=== PATIENT | female | born 2000 | race Two or more races ===

== ENCOUNTER 2021-12-10 20:00 | Inpatient (IN) | payer MEDICAID, OTHER ==
[~2021-12-10] VITALS: Ht 147.3 cm; Wt 77.5 kg
[2021-12-10] MEDS ORDERED: ONDANSETRON HCL 4 MG/2 ML VIAL IV ONE (20:30)
[2021-12-10] MEDS ORDERED: FLEET ENEMA(ADULT) 135 ML PR ONE (23:00)
[2021-12-10] MEDS ORDERED: MAGNESIUM CITRATE SOLUTION 300 ML BTL PO ONE (23:00)
[2021-12-10] MEDS ORDERED: AZITHROMYCIN 500MG/ 250ML 250 ML IV ONE (23:15)
[2021-12-10] MEDS ORDERED: cefTRIAXone 1GM/50ML D5W 50 ML IV ONE (23:15)
[2021-12-10 23:34] LABS: Albumin 3.8 g/dL (3.4-5.0); Calcium 9.5 mg/dL (8.5-10.1); Potassium 3.5 mmol/L (3.5-5.1)
[2021-12-10 23:35] LABS: Basophils # (auto) 0 10 ^3/uL (0-0.2); Basophils % (auto) 0.5 % (0.0-2.0); Eosinophils # (auto) 0 10 ^3/uL (0-0.8); Eosinophils % (auto) 0.2 % (0.0-7.0); Hematocrit 43.1 % (36.0-46.0); Lymphocytes % (auto) 15.8 % (10.0-50.0); Mean Corpuscular Hemoglobin 31.9 pg (28.0-32.0); Mean Corpuscular Hgb Conc. 34.8 g/dL (32.0-36.0); Mean Corpuscular Volume 91.7 fL (80.0-100.0); Monocytes # (auto) 0.8 10 ^3/uL (0-1.3); Monocytes % (auto) 13.6 % (0.0-12.0); Neutrophils # (auto) 4.3 10 ^3/uL (1.6-8.6); Neutrophils % (auto) 69.9 % (37.0-80.0); Nucleated Red Blood Cells % 0.1 %; Red Cell Distribution Width 12.8 % (11.8-14.3); White Blood Cell 6.1 10^3/uL (4.4-10.8)
[2021-12-10 23:36] LABS: BUN/Creatinine Ratio 17.2
[2021-12-10 23:39] LABS: Bilirubin, Total 0.3 mg/dL (0.2-1.0)
[2021-12-11] MEDS ORDERED: ONDANSETRON HCL 4 MG/2 ML VIAL IV PRN (02:15)
[2021-12-11] MEDS ORDERED: NITROGLYCERIN 0.4 MG SL TAB SL PRN (03:00)
[2021-12-11] MEDS ORDERED: MORPHINE SULFATE INJ 2 MG/ml SYRG IV PRN (03:00)
[2021-12-11] MEDS: ACETAMINOPHEN 650 mg PER 20.3 mL UD GT PRN ×2 (04:43→21:07)
[2021-12-11 09:00] VITALS: BP 90/61
[2021-12-11] MEDS ORDERED: levETIRAcetam 500 MG/5ML ORAL SOLN UD GT SCH (10:00)
[2021-12-11] MEDS ORDERED: CLOB2.5S GT (10:14)
[2021-12-11] MEDS ORDERED: OXCA600T3 GT (10:14)
[2021-12-11] MEDS ORDERED: LEVE250T18 GT (10:14)
[2021-12-11] MEDS ORDERED: LAMO100T44 GT (10:14)
[2021-12-11] MEDS: SODIUM CHLOR 0.9% PF (SALINE LOCK) 10ML VIAL/SYR IV SCH ×3 (10:16→21:01)
[2021-12-11] MEDS: AZITHROMYCIN 500MG/ 250ML 250 ML IV SCH (11:05)
[2021-12-11] MEDS: FAMOTIDINE (10MG/ML) 2ML VL IV SCH (11:05)
[2021-12-11] MEDS: ENOXAPARIN SOD 40 MG/0.4 ML SYRINGE SC SCH (11:10)
[2021-12-11] MEDS: DOCUSATE ORAL LIQUID 100 MG/10 ML UD GT SCH ×2 (12:56→21:00)
[2021-12-11 13:00] VITALS: BP 104/73
[2021-12-11] MEDS: OXCARBAZEPINE 300 MG/5 ML GT SCH ×2 (14:00→20:47)
[2021-12-11] MEDS: CLINDAMYCIN 300MG IV 50 ML IV SCH ×2 (15:14→21:11)
[2021-12-11 17:05] VITALS: BP 111/77
[2021-12-11] MEDS ORDERED: Nutren 1.0/Fiber 8 ounces GT SCH (18:00)
[2021-12-11] MEDS: Jevity 1.2 Cal/Fiber 1 Liter GT SCH (20:00)
[2021-12-11] MEDS: levETIRAcetam 500 MG/5ML ORAL SOLN UD GT SCH (20:56)
[2021-12-11] MEDS: lamoTRIgine 25 MG TAB GT SCH (20:58)
[2021-12-11 22:00] VITALS: BP 112/69
[2021-12-11] MEDS: CLOBAZAM 2.5 MG/ML GT SCH (22:50)
[2021-12-12] MEDS: Jevity 1.2 Cal/Fiber 1 Liter GT SCH (00:17)
[2021-12-12] MEDS ORDERED: Jevity 1.2 Cal/Fiber 1 Liter GT SCH (01:30)
[2021-12-12] MEDS ORDERED: Nepro With Carb Steady 1 Liter Bottle GT SCH ×2 (02:45→04:15)
[2021-12-12] MEDS ORDERED: Nepro With Carb Steady 1 Liter Bottle GT ONE (04:45)
[2021-12-12 05:00] VITALS: BP 101/69
[2021-12-12] MEDS: CLINDAMYCIN 300MG IV 50 ML IV SCH ×3 (05:48→21:57)
[2021-12-12] MEDS: lamoTRIgine 25 MG TAB GT SCH ×3 (05:48→21:57)
[2021-12-12] MEDS: OXCARBAZEPINE 300 MG/5 ML GT SCH ×3 (05:48→21:54)
[2021-12-12] MEDS: SODIUM CHLOR 0.9% PF (SALINE LOCK) 10ML VIAL/SYR IV SCH ×3 (05:49→21:58)
[2021-12-12 08:43] LABS: Hematocrit 40.7 % (36.0-46.0); Hemoglobin 14.3 g/dL (12.2-16.2); Mean Corpuscular Hemoglobin 32.1 pg (28.0-32.0); Mean Corpuscular Hgb Conc. 35.2 g/dL (32.0-36.0); Mean Corpuscular Volume 91.1 fL (80.0-100.0); Red Blood Cells 4.47 10^6/uL (4.0-5.20); Red Cell Distribution Width 12.2 % (11.8-14.3); White Blood Cell 6.3 10^3/uL (4.4-10.8)
[2021-12-12 08:55] LABS: Basophils % (manual) 0 (0.0-2.0); Blast Cells 0; Eosinophils % (manual) 0 (0-7); Metamyelocytes % 0; Myelocytes % 0; Promyelocytes % 0; Reactive Lymphocytes 0
[2021-12-12 09:00] VITALS: BP 107/74
[2021-12-12 09:03] LABS: Albumin 3.2 g/dL (3.4-5.0); Potassium 3.5 mmol/L (3.5-5.1)
[2021-12-12 09:06] LABS: BUN/Creatinine Ratio 14.7; Bilirubin, Total 0.2 mg/dL (0.2-1.0); Total Protein 7.6 g/dL (6.4-8.2)
[2021-12-12] MEDS: DOCUSATE ORAL LIQUID 100 MG/10 ML UD GT SCH ×3 (10:00→21:55)
[2021-12-12] MEDS: AZITHROMYCIN 500MG/ 250ML 250 ML IV SCH (10:09)
[2021-12-12] MEDS: FAMOTIDINE (10MG/ML) 2ML VL IV SCH (10:09)
[2021-12-12] MEDS: levETIRAcetam 500 MG/5ML ORAL SOLN UD GT SCH ×2 (10:10→21:56)
[2021-12-12] MEDS: ENOXAPARIN SOD 40 MG/0.4 ML SYRINGE SC SCH (10:11)
[2021-12-12 13:00] VITALS: BP 117/74
[2021-12-12] MEDS ORDERED: ALBUTEROL SULF 2.5 MG/0.5ML(0.5%) NEB SOLN NEB ONE (13:45)
[2021-12-12] MEDS ORDERED: IPRATROPIUM BROM 0.5 MG/2.5ML INH SOL NEB ONE (13:45)
[2021-12-12 15:01] VITALS: BP 117/74
[2021-12-12 15:16] LABS: Band Neutrophils % (manual) 9; Lymphocytes % (manual) 40 (10.0-50.0); Monocytes % (manual) 19 (0-12)
[2021-12-12 16:19] LABS: Urine Bacteria NONE SEEN /hpf (None Seen); Urine Blood Negative /uL (Negative); Urine Mucus FEW (None Seen); Urine Specific Gravity 1.037 (1.001-1.035); Urine WBC 2 /hpf (0 - 5)
[2021-12-12 17:00] VITALS: BP 111/67
[2021-12-12] MEDS: IPRATROPIUM BROM 0.5 MG/2.5ML INH SOL NEB SCH (17:45)
[2021-12-12] MEDS: ALBUTEROL SULF 2.5 MG/0.5ML(0.5%) NEB SOLN NEB SCH (17:45)
[2021-12-12] MEDS: CLOBAZAM 2.5 MG/ML GT SCH (21:54)
[2021-12-12 22:00] VITALS: BP 113/65
[2021-12-13] MEDS: IPRATROPIUM BROM 0.5 MG/2.5ML INH SOL NEB SCH ×4 (00:24→19:04)
[2021-12-13] MEDS: ALBUTEROL SULF 2.5 MG/0.5ML(0.5%) NEB SOLN NEB SCH ×4 (00:24→19:03)
[2021-12-13 05:00] VITALS: BP 104/68
[2021-12-13] MEDS: OXCARBAZEPINE 300 MG/5 ML GT SCH ×3 (05:45→21:35)
[2021-12-13] MEDS: lamoTRIgine 25 MG TAB GT SCH ×3 (05:46→21:36)
[2021-12-13] MEDS: CLINDAMYCIN 300MG IV 50 ML IV SCH ×3 (05:46→21:36)
[2021-12-13] MEDS: SODIUM CHLOR 0.9% PF (SALINE LOCK) 10ML VIAL/SYR IV SCH ×3 (06:02→21:36)
[2021-12-13 07:05] LABS: Basophils # (auto) 0 10 ^3/uL (0-0.2); Basophils % (auto) 0.4 % (0.0-2.0); Eosinophils # (auto) 0.1 10 ^3/uL (0-0.8); Eosinophils % (auto) 2.9 % (0.0-7.0); Hematocrit 37.4 % (36.0-46.0); Hemoglobin 13.2 g/dL (12.2-16.2); Mean Corpuscular Hemoglobin 31.7 pg (28.0-32.0); Mean Corpuscular Hgb Conc. 35.2 g/dL (32.0-36.0); Mean Corpuscular Volume 90.1 fL (80.0-100.0); Neutrophils % (auto) 37.6 % (37.0-80.0); Nucleated Red Blood Cells % 0.1 %; Red Blood Cells 4.15 10^6/uL (4.0-5.20); Red Cell Distribution Width 12.3 % (11.8-14.3); White Blood Cell 5.2 10^3/uL (4.4-10.8)
[2021-12-13 07:19] LABS: Monocytes % (auto) 20.1 % (0.0-12.0)
[2021-12-13 07:31] LABS: Albumin 3.2 g/dL (3.4-5.0); Calcium 8.8 mg/dL (8.5-10.1); Potassium 3.8 mmol/L (3.5-5.1)
[2021-12-13 07:35] LABS: BUN/Creatinine Ratio 13.3; Bilirubin, Total 0.2 mg/dL (0.2-1.0); Total Protein 7.3 g/dL (6.4-8.2)
[2021-12-13 09:00] VITALS: BP 134/20
[2021-12-13] MEDS: DOCUSATE ORAL LIQUID 100 MG/10 ML UD GT SCH ×2 (12:29→21:35)
[2021-12-13] MEDS: levETIRAcetam 500 MG/5ML ORAL SOLN UD GT SCH ×2 (12:29→21:36)
[2021-12-13] MEDS: FAMOTIDINE (10MG/ML) 2ML VL IV SCH (12:30)
[2021-12-13] MEDS: AZITHROMYCIN 500MG/ 250ML 250 ML IV SCH (12:31)
[2021-12-13] MEDS: SODIUM CHLORIDE 0.9% 1,000 ML IV SCH ×2 (12:32→17:40)
[2021-12-13 13:00] VITALS: BP 114/66
[2021-12-13 17:00] VITALS: BP 126/76
[2021-12-13] MEDS: CLOBAZAM 2.5 MG/ML GT SCH (21:35)
[2021-12-13 22:00] VITALS: BP 113/61
[2021-12-14] MEDS: SODIUM CHLORIDE 0.9% 1,000 ML IV SCH ×2 (00:20→07:00)
[2021-12-14] MEDS: IPRATROPIUM BROM 0.5 MG/2.5ML INH SOL NEB SCH ×3 (00:26→11:29)
[2021-12-14] MEDS: ALBUTEROL SULF 2.5 MG/0.5ML(0.5%) NEB SOLN NEB SCH ×3 (00:26→11:29)
[2021-12-14 05:00] VITALS: BP 113/60
[2021-12-14] MEDS: OXCARBAZEPINE 300 MG/5 ML GT SCH (05:45)
[2021-12-14] MEDS: lamoTRIgine 25 MG TAB GT SCH (05:46)
[2021-12-14] MEDS: SODIUM CHLOR 0.9% PF (SALINE LOCK) 10ML VIAL/SYR IV SCH (05:46)
[2021-12-14] MEDS: CLINDAMYCIN 300MG IV 50 ML IV SCH (05:46)
[2021-12-14 07:30] LABS: Basophils # (auto) 0 10 ^3/uL (0-0.2); Basophils % (auto) 0.3 % (0.0-2.0); Eosinophils # (auto) 0.3 10 ^3/uL (0-0.8); Eosinophils % (auto) 3.9 % (0.0-7.0); Hematocrit 35.8 % (36.0-46.0); Hemoglobin 12.9 g/dL (12.2-16.2); Lymphocytes % (auto) 31.5 % (10.0-50.0); Mean Corpuscular Hemoglobin 32.6 pg (28.0-32.0); Mean Corpuscular Hgb Conc. 36.1 g/dL (32.0-36.0); Mean Corpuscular Volume 90.2 fL (80.0-100.0); Monocytes # (auto) 0.7 10 ^3/uL (0-1.3); Monocytes % (auto) 11.1 % (0.0-12.0); Neutrophils # (auto) 3.4 10 ^3/uL (1.6-8.6); Neutrophils % (auto) 53.2 % (37.0-80.0); Nucleated Red Blood Cells % 0.2 %; Red Blood Cells 3.97 10^6/uL (4.0-5.20); Red Cell Distribution Width 12.4 % (11.8-14.3); White Blood Cell 6.4 10^3/uL (4.4-10.8)
[2021-12-14 07:50] LABS: BUN/Creatinine Ratio 11.4; Calcium 8.5 mg/dL (8.5-10.1); Potassium 3.7 mmol/L (3.5-5.1)
[2021-12-14 07:53] LABS: Bilirubin, Total 0.2 mg/dL (0.2-1.0); Total Protein 6.5 g/dL (6.4-8.2)
[2021-12-14 09:00] VITALS: BP 127/74
[2021-12-14] MEDS: DOCUSATE ORAL LIQUID 100 MG/10 ML UD GT SCH (10:47)
[2021-12-14] MEDS: levETIRAcetam 500 MG/5ML ORAL SOLN UD GT SCH (10:48)
[2021-12-14] MEDS: FAMOTIDINE (10MG/ML) 2ML VL IV SCH (10:48)
[2021-12-14] MEDS: AZITHROMYCIN 500MG/ 250ML 250 ML IV SCH (10:48)
[2021-12-14] MEDS ORDERED: ALBU0.084 NEB (12:25)
[2021-12-14] MEDS ORDERED: LEVO500T31 PO (12:25)
[2021-12-14 12:38] VITALS: BP 125/63
[2021-12-14 14:25] VITALS: BP 127/74
== END 2021-12-14 15:00 | disposition home or self-care (01) | DRG 137 ==
LOC: ER 20:00 → TELE 12-11 02:58 → TELE-WESTW 12-11 08:26 → WEST WING 12-13 03:02
PROVIDERS: ADMIT Nurse Practitioner Family; ATTEND Family Medicine
DX: J69.0 Pneumonitis due to inhalation of food and vomit (principal); J96.01 Acute respiratory failure with hypoxia; R34 Anuria and oliguria; Z20.822 Contact with and (suspected) exposure to COVID-19; G40.909 Epilepsy, unspecified, not intractable, without status epilepticus; K59.00 Constipation, unspecified; J40 Bronchitis, not specified as acute or chronic; Z74.01 Bed confinement status; Z87.820 Personal history of traumatic brain injury
CPT/HCPCS: 36415; 71250; 74176; 80053; 81001; 82542; 85007; 85025; 85027; 87804; 94640; 96365; 96367; 96375; G0378; J0696; J2405; J3490